=== PATIENT | male | born 1955 | race Caucasian/White ===

== ENCOUNTER → 2016-12-03 | Outpatient (CLI) | payer BC ==
[~2016-12-03] MED LIST: ANTIVERT/2525 M1 PO; ATIVAN0.5 MG PO; CLINDAMYCIN HC300 MG PO; FLEXERIL10 MG PO; HYDROCODONE BIT1 T11 PO; INDOCIN50 MG PO; LEVOFLOXACIN500 MG PO; NORCET 500 MG-51 CAP PO; OXYCODONE20 MG PO; PERCOCET 325 MG1 TA2 PO; PLAQUENIL200 MG PO; PRILOSEC20 MG PO; TRAMADOL HCL50 MG PO; ZETIA10 MG PO; ZOFRAN4 MG PO
[2016-12-03 07:37] LABS: BASO % 0.4 % (0.0-1.0); EOS # 0.4 10*3/uL (0.0-0.4); EOS % 4.2 % (1.0-4.0); HEMATOCRIT 42.9 % (42.0-52.0); HEMOGLOBIN 14.8 g/dl (14.0-18.0); LYMPH # 1.4 10*3/uL (1.3-4.4); LYMPH % 13.7 % (27.0-41.0); MEAN CORPUSCULAR HGB 33.1 pg (27.0-31.0); MEAN CORPUSCULAR HGB CONC 34.5 g/dl (33.0-37.0); MEAN PLATELET VOLUME 10.1 fl (9.6-12.3); MONO # 0.9 10*3/uL (0.1-1.0); MONO % 8.8 % (3.0-9.0); NEUT # 7.3 10*3/uL (2.3-7.9); NEUT % 72.6 % (47.0-73.0); PLATELET COUNT AUTOMATED 191 10*3/uL (130-400); RED BLOOD COUNT 4.47 10*6/uL (4.50-5.90); RED CELL DISTRI WIDTH 11.8 % (0-14.5); WHITE BLOOD COUNT 10.1 10*3/uL (4.8-10.8)
[2016-12-03 08:00] LABS: ALBUMIN 4.2 gm/dl (3.1-4.5); ALKALINE PHOSPHATASE 87 U/L (45-117); BILIRUBIN, DIRECT 0.2 mg/dL (0.0-0.2); BUN 16 mg/dl (7-24); CHLORIDE 105 mmol/L (98-107); CHOLESTEROL 235 mg/dL (<200); CREATININE 1.02 mg/dL (0.70-1.30); HDL CHOLESTEROL 77 mg/dl (40-60); LDL CHOLESTEROL 129 mg/dL (9-159); LIPASE 189 U/L (73-393); PHOSPHOROUS 2.2 mg/dL (2.5-4.9); SGOT/AST 31 IU/L (3-35); SGPT/ALT 40 U/L (12-78); SODIUM 142 mmol/L (136-145); TOTAL PROTEIN 7.5 gm/dL (6.4-8.2); TRIGLYCERIDES 147 mg/dl (<150); URIC ACID 8.7 mg/dL (3.5-7.2); VLDL CHOLESTEROL 29 mg/dL (6-40)
== END | disposition home or self-care (01) ==
LOC: US 11-28 11:00 → LAB 07:13 → US 07:30
PROVIDERS: Internal Medicine
DX: K76.0 Fatty (change of) liver, not elsewhere classified (principal); R10.11 Right upper quadrant pain; M10.9 Gout, unspecified; R10.13 Epigastric pain

== ENCOUNTER 2017-02-18 21:56 | Inpatient (IN) | payer BC ==
[~2017-02-18] VITALS: Ht 182.8 cm; Wt 86.3 kg
--- NOTE | ~2017-02-18 | CON ---
[place], [place] REPORT OF CONSULTATION NAME: MARIBEL JAVIER UNIT #: [id number] ROOM: 511 DOCTOR: LANG JESUSPAM BIRTHDATE: [birth year] DOS: 02/20/2017 HISTORY OF PRESENT ILLNESS: The patient is a 61-year-old who has presented with chief complaint of melanotic stool and has been admitted to the hospital for GI bleed. However, at the time of admission, white blood cell was 10, H and H of 16 and 46, differential was within normal limit, platelet was 234. Lactic acid was 5.3. Lipase was 303. Comprehensive metabolic panel, GFR greater than 60. Electrolytes balanced. Liver function test normal. Chest x-ray was reviewed, no radiologic pathology. Urine screening was negative for drugs. CT scan of the abdomen and pelvis was done, no definitive acute intra-abdominal and pelvic pathology noticed. Lactic acid remains at about 5.4 and above. His INR was 1.7. Latest CBC, H and H slightly reduced to 14 and 40. PAST MEDICAL HISTORY: Associated degenerative joint disease, vertigo. PAST SURGICAL HISTORY: Left hip prosthesis. SOCIAL HISTORY: Not been smoking. A 20 years ago last smoked. However, an alcohol consumer of about a case of beer per weekend. ALLERGIES: PENICILLIN AND CEFTRIAXONE. MEDICATIONS: List has been reviewed including ascorbic acid, Plaquenil that he has stopped taking amongst other medications reviewed. REVIEW OF SYSTEMS: HEENT: Denies double vision, blurred vision. RESPIRATORY: Denies acute shortness of breath. CARDIOVASCULAR: Denies acute chest pain. DIGESTIVE SYSTEM: Black tarry stool. PHYSICAL EXAMINATION: VITAL SIGNS: Stable. HEENT: Head normocephalic, nontraumatic. Mouth and buccal mucosa benign. NECK: Supple. No thyromegaly. CHEST: Symmetric anatomy, equal expansion. No wheeze, no rhonchi. HEART: Normal sinus rhythm, no gallop, no murmur. ABDOMEN: Soft. No hepato-organomegaly. Bowel sounds present. No pulsatile mass. EXTREMITIES: No cyanosis, no pedal edema. NEUROLOGIC: Alert, oriented to time, place, person. IMPRESSION: Gastrointestinal bleed, lactic acidosis, ruling out ischemic bowel, ruling out upper gastrointestinal bleed secondary to excessive alcohol consumption. OTHER ADJUNCTIVE DIAGNOSIS: Degenerative joint disease, supportive. PLAN AND DISCUSSION: Endoscopic assessment of upper and lower GI tract. [place], [place] REPORT OF CONSULTATION NAME: MARIBEL JAVIER UNIT #: [id number] ROOM: 511 DOCTOR: LANG JESUS,PAM BIRTHDATE: [birth year] PAM CROFT MD CM:CONSTR:REPORT OF CONSULTATION 0943 02/20/17 1506 interface
--- NOTE | ~2017-02-18 | O ---
[place], [place] OPERATIVE NOTE NAME: MARIBEL JAVIER UNIT #: [id number] ROOM: [facility] DOCTOR: LANG JESUSPAM BIRTHDATE: [birth year] DOS: 02/20/2017 INDICATIONS: This is a 61-year-old patient who presented with chief complaint of black tarry stool, undergoing investigation. The patient consultation has been already dictated. The patient has been admitted to the ____ hospital. His labs and records have been addressed. His latest H and H has been reviewed, which was normal at 16 and 46, has likely dropped to 14 and 44. His lactic acid was elevated. We were concerned if he had ischemic event in his colon. PROCEDURE: Today's procedure part of investigation is panendoscopy and colonoscopy. PREMEDICATION: Versed and Diprivan. SCOPE: Olympus forward-viewing colonoscope 10L video. REPORT: After putting the patient in left lateral position and after application of lubricant to rectal pouch and digital examination, scope was introduced. Thereafter, under direct visualization, I advanced the length of colon without difficulty. Base of the cecum explored, appendiceal orifice identified, ileocecal valve was defined. No acute pathology, no evidence of ischemia. Appendiceal orifice was photographed. Air was suctioned out. The patient was extubated, tolerated procedure well. IMPRESSION: Normal colonoscopic examination. No evidence of ischemic colitis despite the fact that lactic acidosis was noticed. PLAN AND DISCUSSION: We are going to proceed with panendoscopy. GASTROENDOSCOPIC REPORT INDICATIONS: The patient has presented with chief complaint of epigastric abdominal pain, black tarry stool. PROCEDURE: Today's procedure part of investigation is panendoscopy plus biopsy. PREMEDICATION: Versed and Diprivan. SCOPE: Olympus forward-viewing gastroscope Q10 video. REPORT: After putting the patient in left lateral position and application of lubricant to the scope, the scope was introduced under direct visualization, advanced through the length of esophagus without difficulty. Esophagus, cervical, thoracic distal within normal limit. Gastric pouch was entered. Gastritis was noticed. As I entered the duodenum at the junction of first and second part of the duodenum, there are multiple small ulcerations photographed. No biopsies obtained from the ulcer. There was suctioned out, brought the scope back to the antrum. Antral biopsy obtained ruling out scope was gradually withdrawn. Small hiatal hernia of about 2 cm confirmed. Air was suctioned out. He tolerated the procedure well. [place], [place] OPERATIVE NOTE NAME: MARIBEL JAVIER UNIT #: [id number] ROOM: [facility] DOCTOR: LANG JESUS,PAM BIRTHDATE: [birth year] IMPRESSION: Small hiatal hernia, gastritis, multi small duodenal ulcers. Perhaps he has most likely blood from duodenal ulcer. At this stage, I will keep this patient on Protonix 40 mg every day. The patient is avid alcohol consumer, particularly during the weekends. The patient advised to abstain from alcohol to such a degree, which and due to the adverse effect that it may have to do with his GI bleed. I thank you very much indeed for your kind referral. PAM CROFT MD CM:OPRECORD:OPERATIVE NOTE [id number] PAM CROFT MD 02/20/17 1158 interface
[2017-02-18 22:02] VITALS: BP 160/95
[2017-02-18 22:59] LABS: BASO # 0.1 10*3/uL (0.0-0.1); BASO % 0.5 % (0.0-1.0); EOS # 0.1 10*3/uL (0.0-0.4); EOS % 0.7 % (1.0-4.0); HEMATOCRIT 46.8 % (42.0-52.0); HEMOGLOBIN 16.3 g/dl (14.0-18.0); LYMPH # 2.2 10*3/uL (1.3-4.4); LYMPH % 21.7 % (27.0-41.0); MEAN CELL VOLUME 89.8 fl (80.0-94.0); MEAN CORPUSCULAR HGB 31.3 pg (27.0-31.0); MEAN CORPUSCULAR HGB CONC 34.8 g/dl (33.0-37.0); MEAN PLATELET VOLUME 10.1 fl (9.6-12.3); MONO # 0.7 10*3/uL (0.1-1.0); MONO % 7.4 % (3.0-9.0); NEUT # 6.9 10*3/uL (2.3-7.9); NEUT % 69.5 % (47.0-73.0); PLATELET COUNT AUTOMATED 234 10*3/uL (130-400); RED BLOOD COUNT 5.21 10*6/uL (4.50-5.90); RED CELL DISTRI WIDTH 11.4 % (0-14.5)
--- NOTE | 2017-02-18 23:02 | NUR ---
CRITICAL LACTIC ACID LEVEL ERCIEVED AND DR. INGRAM NOTIFIED. MISBAH CABRERA RN
[2017-02-18 23:16] LABS: ALBUMIN 4.3 gm/dl (3.1-4.5); ALKALINE PHOSPHATASE 93 U/L (45-117); BUN 26 mg/dl (7-24); CHLORIDE 103 mmol/L (98-107); CREATININE 1.16 mg/dL (0.70-1.30); POTASSIUM 3.8 mmol/L (3.5-5.1); SGOT/AST 27 IU/L (3-35); SGPT/ALT 41 U/L (12-78); SODIUM 139 mmol/L (136-145); TOTAL PROTEIN 7.8 gm/dL (6.4-8.2)
[2017-02-18 23:19] LABS: TROPONIN I < 0.015 ng/ml (<0.045)
[2017-02-18 23:29] LABS: BILIRUBIN NEGATIVE (NEGATIVE); BLOOD NEGATIVE (NEGATIVE); CLARITY CLEAR (CLEAR); COLOR YELLOW (YELLOW); GLUCOSE NEGATIVE (NEGATIVE); KETONE NEGATIVE (NEGATIVE); LEUKO ESTERASE NEGATIVE (NEGATIVE); NITRITE NEGATIVE (NEGATIVE); SPECIFIC GRAVITY >= 1.030 (1.005-1.030); UROBILINOGEN 0.2 E.U./dl (0.2-1.0)
[2017-02-18 23:36] LABS: URINE AMPHETAMINES < 1000 (1000ng/ml); URINE BARBITURATES < 200 (200ng/ml); URINE BENZODIAZEPINES < 200 (200ng/ml); URINE CANNABINOIDS (THC) < 50 (50ng/ml); URINE COCAINE < 300 (300ng/ml); URINE METHADONE < 300 (300ng/ml); URINE OPIATES < 300 (300ng/ml)
[2017-02-18 23:37] LABS: URINE PHENCYCLIDINE < 25 (25ng/ml)
[2017-02-18 23:38] LABS: WBC 0-2 wbc/hpf (0-5)
[2017-02-19] VITALS (7 sets, daily range): BP systolic 140–163; BP diastolic 76–90
--- NOTE | 2017-02-19 01:45 | NUR ---
A 61 yr old male, admitted to [facility], under the services of JADE Esparza DO with a diagnosis of alcohol withdrawl,dehydration and Lactic acidosis. Chief complaint is diarrhea, vomiting, anxiety, and insomnia since Thursday. Patient arrived via stretcher from ER. Monitor applied. Initial assessment completed. Vital signs taken and recorded. DR Wood entered orders electronically prior to patient's arrival in [facility]. See assessment for past medical history, medications and allergies. Patient and/or family oriented to unit. [facility] visitation policy reviewed. Clothing/patient valuable form completed. BRE BURROUGHS
[2017-02-19] MEDS ORDERED: VITAMIN C1000 M5 PO (02:24)
[2017-02-19] MEDS ORDERED: MULTIVITAMINS1 EAC5 PO (02:24)
[2017-02-19] MEDS ORDERED: ZINC50 M3 PO (02:25)
[2017-02-19] MEDS ORDERED: VITAMIN D31000 UNI1 PO (02:26)
[2017-02-19] MEDS ORDERED: FLONASE ALLERG9.9 ML NAS (02:27)
[2017-02-19] MEDS ORDERED: PREDNISONE5 MG PO (02:27)
[2017-02-19] MEDS ORDERED: AXIRON30 MG/1.1 TD (02:28)
--- NOTE | 2017-02-19 02:53 | NUR ---
AT 0207 PT GIVEN VISTARIL PO, AND ATIVAN 2MG IV FOR ANXIETY AND INSOMNIA. HE WAS ASSISTED TO BSC FOR ABOUT 60ML OF GREEN LIQUID STOOL. SPECIMENS TO LAB FOR TESTS ORDERED. PT IS NOW SLEEPING SOUNDLY SINCE EARLIER MEDS. BANANA BAG INFUSING PER ORDER.
[2017-02-19 03:30] LABS: BASO % 0.4 % (0.0-1.0); EOS # 0.1 10*3/uL (0.0-0.4); EOS % 0.5 % (1.0-4.0); HEMATOCRIT 40.8 % (42.0-52.0); HEMOGLOBIN 14.4 g/dl (14.0-18.0); LYMPH # 1.3 10*3/uL (1.3-4.4); LYMPH % 13.1 % (27.0-41.0); MEAN CELL VOLUME 90.3 fl (80.0-94.0); MEAN CORPUSCULAR HGB 31.9 pg (27.0-31.0); MEAN CORPUSCULAR HGB CONC 35.3 g/dl (33.0-37.0); MEAN PLATELET VOLUME 9.7 fl (9.6-12.3); MONO # 0.7 10*3/uL (0.1-1.0); MONO % 7.1 % (3.0-9.0); NEUT # 8.1 10*3/uL (2.3-7.9); NEUT % 78.7 % (47.0-73.0); PLATELET COUNT AUTOMATED 189 10*3/uL (130-400); RED BLOOD COUNT 4.52 10*6/uL (4.50-5.90); RED CELL DISTRI WIDTH 11.5 % (0-14.5); WHITE BLOOD COUNT 10.3 10*3/uL (4.8-10.8)
[2017-02-19 03:46] LABS: ACT PARTIAL THROMBO TIME 25.9 SECONDS (20.8-31.5); INTERNATIONAL NORM RATIO 1.1 (2.0-3.5)
[2017-02-19 03:49] LABS: ALBUMIN 3.7 gm/dl (3.1-4.5); ALKALINE PHOSPHATASE 79 U/L (45-117); BUN 22 mg/dl (7-24); CHLORIDE 106 mmol/L (98-107); CHOLESTEROL 146 mg/dL (<200); CREATININE 0.99 mg/dL (0.70-1.30); HDL CHOLESTEROL 52 mg/dl (40-60); LDL CHOLESTEROL 56 mg/dL (9-159); PHOSPHOROUS 3.2 mg/dL (2.5-4.9); POTASSIUM 3.6 mmol/L (3.5-5.1); SGOT/AST 23 IU/L (3-35); SGPT/ALT 36 U/L (12-78); SODIUM 139 mmol/L (136-145); TOTAL PROTEIN 6.6 gm/dL (6.4-8.2); TRIGLYCERIDES 191 mg/dl (<150); VLDL CHOLESTEROL 38 mg/dL (6-40)
--- NOTE | 2017-02-19 05:14 | NUR ---
PT'S CALL LIGHT ON....."SHOULDN'T I BE ASLEEP?" I EXPLAINED THAT HE HAD BEEN. HE SAID "ONLY THREE HOURS". MEDICATED WITH ROUTINE SCHEDULED LIBRIUM 50MG PO. HE'S NOW STUDYING THE MENU FOR BREAKFAST.
--- NOTE | 2017-02-19 06:07 | NUR ---
PT INTERMITTENTLY SITTING AT SIDE OF BED, STANDING. HE'S ORIENTED AND COOPERATIVE. IV FLUIDS CONTINUE.
--- NOTE | 2017-02-19 08:11 | NUR ---
VISTARIL PER REQUEST, NO DT'S OR TREMORS NOTED
--- NOTE | 2017-02-19 09:11 | NUR ---
IV ATIVAN FOR TREMORING/AGITATION..."YOU'RE SUPPOSED TO MAKE ME COMFORTABLE AND I'M NOT"
--- NOTE | 2017-02-19 10:07 | NUR ---
IV ATIVAN SOMEWHAT EFFECTIVE, NO FUTHER TREMORS/AGITATION AND PT IS STILL WIDE AWAKE/NO SLEEPINESS AT ALL
--- NOTE | 2017-02-19 11:55 | NUR ---
LIBRIUM/ROBAXIN GIVEN FOR ALCOHOL WITHDRAWAL AND KNOWN NECK-MUSCLE PROBLEMS
--- NOTE | 2017-02-19 13:30 | NUR ---
DR REYNOSO HERE IN [facility], UPDATED THAT PTS DOSE OF ATIVAN Q6 IS NOT LATING FOR THS PT, REQUESTED A SHORTER FREQUENCY
--- NOTE | 2017-02-19 13:50 | NUR ---
DR REYNOSO STILL HERE IN THE [facility], REMINDED THAT THE PT IS STILL REQUESTING MORE FREQUENT ATIVAN
--- NOTE | 2017-02-19 16:43 | NUR ---
ATIVAN AT 1549 GIVEN PER Q6H FREQUENCY AND HAS BEEN EFFECTIVE
--- NOTE | 2017-02-19 22:16 | NUR ---
IV ATIVAN PER REQUEST, HAS BEEN OFF AND ON BSC ALL EVENING, OCC ACCIDENTS ON FLOOR, VERY FINE TREMORS OF HANDS NOTED, PT COOPERATIVE BUT CONSTANTLY HAS MONITOR OFF, GETS IV AND CALL LIGHT TANGLED UP, HAS HEAD PHONE ON WITH HIS IPAD, STILL HAS VERY STRONG OFFENSIVE ODOR OF THE "OILS" HIS PUT ON HIM TO HELP KEEP HIM CALM
--- NOTE | 2017-02-19 23:43 | NUR ---
CALLED DOCTOR JONATHAN WITH PATIENT BP OF 162/78. INFORMED HIM PATIENT WAS GIVEN ATIVAN AT 2200 HE SAID IT WAS OK JUST GOING TO WATCH IT FOR NOW.
[2017-02-20] VITALS (10 sets, daily range): BP systolic 117–162; BP diastolic 50–93
--- NOTE | 2017-02-20 05:12 | NUR ---
PATIENT GIVEN TAP WATER ENEMA FOR COLO PREP THIS MORNING. PATIENT HAS HAD YELLOW LIQUID STOOL THROUGH OUT THE NIGHT. PATIENT IS NOW CLEAR. PATIENT TOLERATED WELL.
--- NOTE | 2017-02-20 06:56 | NUR ---
Shift chart check completed.24 HR chart check completed.
--- NOTE | 2017-02-20 07:43 | NUR ---
DR GTZ MADE AWARE THAT PT HAS HAD A HIP REPLACEMENT WITH QUESTION OF PREOP ANTIBIOTIC. NEW IV SITE OBTAINED FIRST ATTEMPT ON LEFT ARM. PT DENIES AUDITORY/VISUAL HALLUCINATIONS. NO OBVIOUS TREMOR NOTED. NO SEIZURE ACTIVITY. SEE ALL APPROPRIATE INTERVENTIONS.
--- NOTE | 2017-02-20 07:54 | NUR ---
NPO FOR EGD/COLO THIS AM.
--- NOTE | 2017-02-20 08:32 | NUR ---
PT AGITATED, SAYS "I NEED TO GET OUT OF THIS ROOM AND WALK". PRESENT WITH PATIENT. PT DISCONNECTED FROM MONITOR AND IS ACCOMPANYING HIM TO WALK OUT ON THE FLOOR. GAIT IS STEADY. REMINDED NOT TO LEAVE THE FLOOR AND NOT TO EAT/DRINK WHILE OUT FOR HIS WALK.
--- NOTE | 2017-02-20 08:38 | NUR ---
BACK TO ROOM, ROCONNECTED TO MONITOR. HR 70'S.
--- NOTE | 2017-02-20 09:10 | NUR ---
PT OUT PACING IN HALLS AGAIN.
--- NOTE | 2017-02-20 09:23 | NUR ---
TO OR VIA BED WITH OR PERSONNEL.
--- NOTE | 2017-02-20 11:54 | NUR ---
PT RETURNED FROM OR. UP AND ABOUT IN ROOM. SELF GARRY CARE. LINENS CHANGED. AT BEDSIDE. AWAITING POST PROCEDURE ORDERS FROM DR CROFT
--- NOTE | 2017-02-20 14:10 | NUR ---
TRANSFERRED, VIA W/C, TO [facility] IN STABLE CONDITION. REPORT TO AMBROCIO.
[2017-02-21] VITALS: BP 141/73
--- NOTE | 2017-02-21 02:29 | NUR ---
RESTING IN BED WITH EYES CLOSED. NO SIGNS OR SYMPTOMS OF DISTRESS NOTED. AROUSES TO VERBAL STIMULI. WILL CONTINUE TO MONITOR. CALL LIGHT IN REACH.
--- NOTE | 2017-02-21 07:45 | NUR ---
Shift chart check completed.
[2017-02-21 08:00] VITALS: BP 138/58
--- NOTE | 2017-02-21 09:06 | NUR ---
PT COMPLAINS OF GENERALIZED ACHE/ARTHRITIS PAIN. TYLENOL AND PREDNISONE GIVEN
[2017-02-21] MEDS ORDERED: PANTOPRAZOLE SO40 MG PO (10:13)
[2017-02-21] MEDS ORDERED: ATARAX,VISTARIL50 MG PO (10:13)
--- NOTE | 2017-02-21 10:39 | NUR ---
SPOKE TO DR. REYNOSO, PT CAN BE DISHCARGED TODAY AFTER AFTERNOON DOSE OF LIBRIUM.
[2017-02-21 12:00] VITALS: BP 149/60
--- NOTE | 2017-02-21 13:00 | NUR ---
Discharge instructions reviewed with patient. Patient receptive and verbalizes understanding. Follow-up care understood. Written instructions given to patient. iv removed, dressing applied. pt has no questions on discharge, understands to shredder picker new rx at pharmacy. pt decline wheelchair for EMELYN Hernandez
== END 2017-02-21 13:00 | disposition home or self-care (01) | DRG 896 ==
LOC: ED 21:56 → EDHOLD 02-19 00:25 → ICCU 02-19 00:25 → 5E 02-20 14:07
PROVIDERS: Family Medicine; Student in an Organized Health Care Education/Training Program; ADMIT Internal Medicine
PROC: 0DJD8ZZ Inspection of Lower Intestinal Tract, Via Natural or Artificial Opening Endoscopic (ICD-10-PCS; principal; 2017-02-20)
PROC: 0DB68ZX Excision of Stomach, Via Natural or Artificial Opening Endoscopic, Diagnostic (ICD-10-PCS; principal; 2017-02-20)
DX: F10.239 Alcohol dependence with withdrawal, unspecified (principal); K26.4 Chronic or unspecified duodenal ulcer with hemorrhage; E87.2 Acidosis; E83.51 Hypocalcemia; R17 Unspecified jaundice; K29.71 Gastritis, unspecified, with bleeding; E86.0 Dehydration; K44.9 Diaphragmatic hernia without obstruction or gangrene; R42 Dizziness and giddiness; M06.9 Rheumatoid arthritis, unspecified; Z88.0 Allergy status to penicillin; Z88.8 Allergy status to other drugs, medicaments and biological substances; Z79.899 Other long term (current) drug therapy; Z87.891 Personal history of nicotine dependence; Z83.3 Family history of diabetes mellitus

== ENCOUNTER → 2022-08-19 | Outpatient (CLI) | payer MEDICARE ==
[~2022-08-19] MED LIST changes: +ATARAX,VISTARIL50 MG PO; +AXIRON30 MG/1.1 TD; +FLONASE ALLERG9.9 ML NAS; +MULTIVITAMINS1 EAC5 PO; +PANTOPRAZOLE SO40 MG PO; +PREDNISONE5 MG PO; +VITAMIN C1000 M5 PO; +VITAMIN D31000 UNI1 PO; +ZINC50 M3 PO
[2022-08-19 08:49] LABS: HEMATOCRIT 41.9 % (42.0-52.0); MEAN CELL VOLUME 89.1 fl (80.0-94.0); MEAN CORPUSCULAR HGB 30.6 pg (27.0-31.0); MEAN CORPUSCULAR HGB CONC 34.4 g/dl (33.0-37.0); MEAN PLATELET VOLUME 10.3 fl (9.6-12.3); PLATELET COUNT AUTOMATED 216 10*3/uL (130-400); RED CELL DISTRI WIDTH 11.9 % (0-14.5); WHITE BLOOD COUNT 13.3 10*3/uL (4.8-10.8)
[2022-08-19 08:55] LABS: MANUAL DIFF REFLEX YES
[2022-08-19 09:11] LABS: ALKALINE PHOSPHATASE 58 U/L (46-116); BUN 15 mg/dl (9-23); CHLORIDE 104 mmol/L (98-107); POTASSIUM 4.5 mmol/L (3.4-5.1); SGPT/ALT 26 U/L (10-49); TOTAL PROTEIN 7.1 gm/dL (6.0-8.0); URIC ACID 5.7 mg/dL (3.7-9.2)
[2022-08-19 09:41] LABS: POLYCHROMASIA SLIGHT; TOTAL CELLS COUNTED 100 #CELLS
[2022-08-19 09:42] LABS: OVALOCYTES FEW; PLATELET SUFFICIENCY NORMAL (NORMAL)
== END | disposition home or self-care (01) ==
LOC: LAB 08:19
PROVIDERS: ATTEND Nurse Practitioner Family
DX: M17.11 Unilateral primary osteoarthritis, right knee (principal); M25.461 Effusion, right knee; M10.9 Gout, unspecified